=== PATIENT | female | born 1990 | race Caucasian/White ===

== ENCOUNTER → 2019-10-29 | Outpatient (CLI) | payer BC ==
--- NOTE | 2019-10-29 19:56 | MR ---
EXAMINATION TYPE: MR cervical spine wo con DATE OF EXAM: 10/29/2019 COMPARISON: None HISTORY: Rt arm numbness/pain, Headaches TECHNIQUE: Multiplanar, multisequence images of the cervical spine were acquired. C2-C3: No evidence for degenerative disc disease. No disc bulge/herniation or protrusion. No Canal stenosis. Foramina are patent bilaterally. C3-C4: Disc desiccation. No focal herniation. Mild uncovertebral joint hypertrophy. Hypertrophy great er on the right resulting in mild right foraminal encroachment. C4-C5: No disc herniation or canal stenosis. Minimal central disc bulging. Neural foramina patent. C5-C6: Broad-based right paracentral disc protrusion or small herniation. Mild compression of thecal sac. Neural foramina remain patent. C6-C7: Mild central disc bulging but no focal herniation, canal stenosis or foraminal encroachment. C7-T1: No evidence for degenerative disc disease. No disc bulge/herniation or protrusion. No Canal stenosis. Foramina are patent bilaterally. Incidental note is made of sagittal images T3-T4 of the disc protrusion recommend thoracic MRI. Cervical segments are intact. There is normal alignment. Cervical spinal cord is of normal signal. Craniovertebral junction relationships are within normal limits. IMPRESSION: 1. Broad-based right paracentral disc protrusion or small herniation C5-C6 with mass effect upon the thecal sac and abuts the anterior margin of the spinal cord. No displacement of the spinal cord or fo raminal encroachment. 2. Mild central disc bulging C4-5 and C6-C7 with no discrete herniation, canal stenosis or foraminal encroachment. 3. On the sagittal images at T3-T4 there is a sagittal disc protrusion for which MRI thoracic spine r ecommended. 4. Uncovertebral joint hypertrophy greater on the right C3-C4 results in mild right foraminal encroac hment.
== END | disposition home or self-care (01) ==
LOC: RADMRIMAIN 18:01
PROVIDERS: ATTEND Family Medicine
DX: M50.221 Other cervical disc displacement at C4-C5 level (principal); M79.601 Pain in right arm; G44.209 Tension-type headache, unspecified, not intractable
CPT/HCPCS: 72141

== ENCOUNTER → 2021-01-16 | Outpatient (CLI) | payer BC, OTHER | END | disposition home or self-care (01) | LOC: LABWHC1 16:57 | PROVIDERS: ATTEND Family Medicine | DX: Z20.822 Contact with and (suspected) exposure to COVID-19 (principal) | CPT/HCPCS: U0003; C9803 ==

== ENCOUNTER → 2021-08-06 | Outpatient (CLI) | payer OTHER ==
--- NOTE | 2021-08-06 22:12 | CT ---
EXAMINATION TYPE: CT abdomen pelvis wo con DATE OF EXAM: 08/06/2021 COMPARISON: None INDICATION: LLQ pain DLP: 424.6 mGycm, Automated exposure control for dose reduction was used. CONTRAST: 0 mL of Isovue 300. Study performed without Oral Contrast TECHNIQUE: Axial images were obtained from above the diaphragm to the pubic rami in the axial plane a t 5 mm thick sections. Reconstructed images are reviewed on the computer in the coronal plane. FINDINGS: Limited CT sections are obtained the lung bases. The lung bases are clear. CT ABDOMEN: Liver: Normal Spleen: Normal Pancreas: Normal Adrenal glands: The adrenal glands are normal. Gallbladder: Normal Kidneys: No masses are evident. No hydronephrosis is present. No cysts are present. There is a 1.1 x 0.3 cm calcification superior lateral right kidney. Aorta: Normal Inferior vena cava: Normal. CT PELVIS: Loops of bowel within the abdomen and pelvis are normal. The study is performed without oral cont rast limiting bowel evaluation. Diverticuli are present within the distal sigmoid colon and no suspic ious adjacent inflammatory changes are evident. Appendix: Normal as visualized. Urinary bladder: Decompressed with limited evaluation. Genitourinary structures: Uterus and adnexa appear normal. Osseous structures: No suspicious lytic or sclerotic lesions. IMPRESSIONS: 1. Diverticulosis without acute diverticulitis. 2. Nonobstructing right renal stone.
== END | disposition home or self-care (01) ==
LOC: RADCTMAIN 15:09
PROVIDERS: ATTEND Family Medicine
DX: N20.0 Calculus of kidney (principal); K57.30 Diverticulosis of large intestine without perforation or abscess without bleeding
CPT/HCPCS: 74176

== ENCOUNTER → 2021-08-06 | Outpatient (CLI) | payer OTHER ==
[2021-08-06 16:20] LABS: Appearance,Urine Cloudy (Clear); Bacteria,Urine Many /hpf; Bilirubin,Urine Negative (Negative); Blood,Urine Moderate (Negative); Color,Urine Yellow; Glucose,Urine (UA) Negative (Negative); Hyaline Casts,Urine 1 /lpf (0-2); Ketones,Urine 2+ (Negative); Leukocyte Esterase,Urine Moderate (Negative); Mucus,Urine Few /hpf; Nitrite,Urine Negative (Negative); PH, Urine 5.5 (5.0-8.0); Protein,Urine 1+ (Negative); RBC,Urine 13 /hpf (0-5); Specific Gravity,Urine 1.022 (1.001-1.035); Squamous Epithelial Cell,Urine 2 /hpf (0-4); Urobilinogen,Urine <2.0 mg/dL (<2.0); WBC,Urine 41 /hpf (0-5)
[2021-08-06 22:40] LABS: Basophils # (A) 0.02 X 10*3/uL (0.00-0.10); Basophils % (A) 0.1 %; Eosinophils # (A) 0.01 X 10*3/uL (0.04-0.35); Eosinophils % (A) 0.1 %; HGB 14.2 g/dL (12.0-15.0); Lymphocytes # (A) 1.48 X 10*3/uL (0.90-5.00); Lymphocytes % (A) 10.8 %; MCH 30.5 pg (27.0-32.0); MCHC 33.8 g/dL (32.0-37.0); MCV 90.1 fL (80.0-97.0); Mean Platelet Volume 9.8 fL (9.5-12.2); Monocytes # (A) 0.75 X 10*3/uL (0.20-1.00); Monocytes % (A) 5.5 %; Neutrophils # (A) 11.36 X 10*3/uL (1.80-7.70); Neutrophils % (A) 83.2 %; Platelet Count 201 X 10*3/uL (140-440); RBC 4.66 X 10*6/uL (4.10-5.20); WBC 13.66 X 10*3/uL (4.50-10.00)
[2021-08-07 01:27] LABS: African American GFR (CKD) 99.4 (60.0-200.0); Albumin 4.2 g/dL (3.8-4.9); Albumin/Globulin Ratio 1.75 (1.60-3.17); Anion Gap 14.8 mmol/L (4.00-12.00); BUN/Creat Ratio 8.78 Ratio (12.00-20.00); Blood Urea Nitrogen 7.9 mg/dL (9.0-27.0); Calcium 8.9 mg/dL (8.7-10.3); Carbon Dioxide 18.2 mmol/L (21.6-31.8); Globulin 2.4 g/dL (1.6-3.3); Non-African American GFR(CKD) 85.8 (60.0-200.0); Potassium 3.7 mmol/L (3.5-5.5); Total Bilirubin 0.8 mg/dL (0.30-1.20); Total Protein 6.6 g/dL (6.2-8.2)
== END | disposition home or self-care (01) ==
LOC: LABWHC1 15:25
PROVIDERS: ATTEND Family Medicine
DX: R10.32 Left lower quadrant pain (principal)
CPT/HCPCS: 36415; 80053; 81001; 85025; 87077; 87086; 87186

== ENCOUNTER → 2023-03-26 | Outpatient (CLI) | payer OTHER ==
[2023-03-26 14:58] LABS: Basophils # (A) 0.05 X 10*3/uL (0.00-0.10); Basophils % (A) 0.7 %; Eosinophils # (A) 0.08 X 10*3/uL (0.04-0.35); Eosinophils % (A) 1.2 %; HCT 43.5 % (37.2-46.3); Lymphocytes # (A) 2.08 X 10*3/uL (0.90-5.00); MCH 28.9 pg (27.0-32.0); MCHC 32.2 d/dL (32.0-37.0); MCV 89.9 FL (80.0-97.0); Mean Platelet Volume 9.3 FL (9.5-12.2); NRBC Per 100 WBC 0 X 10*3/uL (0.00-0.01); Neutrophils # (A) 4.07 X 10*3/uL (1.80-7.70); Neutrophils % (A) 60.8 %; Platelet Count 266 X 10*3/uL (140-440); RBC 4.84 X 10*6/uL (4.10-5.20); RDW 12.7 % (11.5-14.5)
[2023-03-26 16:03] LABS: ALT 17 U/L (8-44); AST 18 U/L (13-35); Albumin 4.1 d/dL (3.8-4.9); Albumin/Globulin Ratio 1.71 Ratio (1.60-3.17); Alkaline Phosphatase 68 U/L (41-126); BUN/Creat Ratio 15.78 Ratio (12.00-20.00); Blood Urea Nitrogen 14.2 mg/dL (9.0-27.0); Calcium 9.4 mg/dL (8.7-10.3); Carbon Dioxide 22.2 mmol/L (21.6-31.8); Chloride 109 mmol/L (96-109); Globulin 2.4 d/dL (1.6-3.3); Glucose 87 mg/dL (70-110); HCG,Quantitative Serum <3.0 mIU/mL (0.0-6.0); Potassium 4.6 mmol/L (3.5-5.5); Sodium 142 mmol/L (135-145); Total Bilirubin 0.3 mg/dL (0.3-1.2); Total Protein 6.5 d/dL (6.2-8.2)
--- NOTE | 2023-03-26 16:10 | US ---
EXAMINATION TYPE: US abdomen complete DATE OF EXAM: 03/26/2023 COMPARISON: NONE CLINICAL INDICATION: Female, 32 years old with history of R14.0 R10.84 GENERALIZED ABDOMIN R19.4 PASTOR GE IN BOWEL HABIT; Patient states her belly is distended. Loss of appetite with feeling full. TECHNIQUE: Multiple sonographic images of the abdomen are obtained. FINDINGS: EXAM MEASUREMENTS: Liver Length: 17.3 cm normal less than 15.5 cm. Gallbladder Wall: 0.1 cm CBD: 0.3 cm Spleen: 11.8 cm Right Kidney: 10.7 x 4.7 x 4.1 cm Left Kidney: 10.5 x 4.8 x 3.8 cm Pancreas: wnl Liver: wnl Gallbladder: wnl Evidence for sonographic Guidry's sign: neg CBD: wnl Spleen: wnl Right Kidney: Upper pole echogenic focus = 1.2 x 0.6 cm can be a nonobstructing renal stone. Left Kidney: No hydronephrosis or masses seen Upper IVC: wnl Abd Aorta: No AAA visualized at time of scan IMPRESSION: 1. Nonobstructing upper pole right renal stone. 2. Mild hepatomegaly
[2023-03-26 16:29] LABS: Thyroid Peroxidase Antibodies <9.0 U/mL (0.0-33.0)
== END | disposition home or self-care (01) ==
LOC: RADUSWWP 07:35
PROVIDERS: ATTEND Family Medicine
DX: R16.0 Hepatomegaly, not elsewhere classified (principal); R14.0 Abdominal distension (gaseous); R10.84 Generalized abdominal pain; R19.4 Change in bowel habit; N20.0 Calculus of kidney
CPT/HCPCS: 76700; 80053; 84436; 84443; 84481; 84702; 85025; 86376; 86800